=== PATIENT | female | born 1965 | race Caucasian/White ===

== ENCOUNTER 2023-01-11 09:35 | Outpatient (CLI) | payer BC, SELFPAY | END 2023-01-11 09:36 | disposition home or self-care (01) | PROVIDERS: PCP Physician Assistant Medical; Visit Provider Physician Assistant Medical | DX: Z00.00 Encounter for general adult medical examination without abnormal findings (principal); I10 Essential (primary) hypertension; E78.5 Hyperlipidemia, unspecified; R73.01 Impaired fasting glucose | CPT/HCPCS: 80053; 80061; 84443 ==

== ENCOUNTER 2024-01-01 10:15 | Outpatient (RCR) | payer BC, SELFPAY | END 2024-03-04 15:24 | disposition home or self-care (01) | PROVIDERS: PCP Physician Assistant Medical; Visit Provider Orthopaedic Surgery | DX: M22.2X9 Patellofemoral disorders, unspecified knee (principal); Z51.89 Encounter for other specified aftercare | CPT/HCPCS: 97110; 97140; 97161 ==

== ENCOUNTER 2024-05-28 09:09 | Outpatient (CLI) | payer BC, SELFPAY | END 2024-05-28 09:10 | disposition home or self-care (01) | PROVIDERS: PCP Physician Assistant Medical; Visit Provider Physician Assistant Medical | DX: Z00.00 Encounter for general adult medical examination without abnormal findings (principal); E78.5 Hyperlipidemia, unspecified; I10 Essential (primary) hypertension; R73.01 Impaired fasting glucose; R06.00 Dyspnea, unspecified; R35.0 Frequency of micturition; Z13.0 Encounter for screening for diseases of the blood and blood-forming organs and certain disorders involving the immune mechanism; Z13.6 Encounter for screening for cardiovascular disorders; Z13.1 Encounter for screening for diabetes mellitus | CPT/HCPCS: 80053; 80061; 84443; 87086 ==

== ENCOUNTER 2024-06-10 12:48 | Outpatient (CLI) | payer BC, SELFPAY ==
[2024-06-10 13:48] VITALS: BP 162/88; PULSE 98; RESP 18
--- NOTE | 2024-06-10 14:15 | PM.ST ---
Stress Test Note Date Date of test: 06/10/24 Providers Primary care provider: Nori Decker Stress test physician: Will Aparicio Stress Test Note Stress test ordered: Stress Echo Indication for test: Dyspnea Results discussion: Patient is a very nice 59-year-old female presents for the above test after discussion the risks benefits and side effects she would like to proceed pretest EKG shows normal sinus rhythm, with a ventricular rate of 69 and a BP of 152/84. No acute ST wave changes are noted, there is some at T-wave flattening notable in leads 3. Standard [place] protocol is employed over a 10 minute period,test is terminated because of fulfillment of protocol, she achieved a metabolic equivalent of 11.7 Mets with a maximum heart rate of 163, during this test she had no acute symptoms, on review of the tracing there is no acute changes suggestive of ischemia, occasional PACs are noted. Impression: Negative objective, and subjective portion of stress echo Follow up suggested: Await echo images clinical correlation with these will be needed, conditioning was felt to be excellent, patient left this testing facility in good condition. No complications
== END 2024-06-10 13:49 | disposition home or self-care (01) ==
PROVIDERS: PCP Physician Assistant Medical; Visit Provider Physician Assistant Medical
DX: R07.89 Other chest pain (principal); R06.00 Dyspnea, unspecified
CPT/HCPCS: 93016; 93325; 93351

== ENCOUNTER 2024-08-05 16:46 | Outpatient (CLI) | payer BC, SELFPAY ==
--- NOTE | 2024-08-05 17:00 | CRLHL7_ITS ---
For Patients: As a result of the Century Cures Act, medical imaging exams and procedure reports are released immediately into your electronic medical record. You may view this report before your referring provider. If you have questions, please contact your health care provider. BILATERAL DIGITAL SCREENING MAMMOGRAM WITH COMPUTER-AIDED DETECTION AND TOMOSYNTHESIS CLINICAL HISTORY: Routine screening exam. COMPARISON: None. TECHNIQUE: Digital mammogram in CC and MLO projections including computer-aided detection (CAD). Tomosynthesis was used in this interpretation. BREAST COMPOSITION: There are scattered areas of fibroglandular density. FINDINGS: RIGHT Breast: No suspicious findings. LEFT Breast: Focal asymmetric density within the upper outer quadrant 7 cm from the nipple. IMPRESSION: LEFT breast asymmetry/mass. RECOMMENDATIONS: Additional mammographic views of the LEFT breast including 3D spot compression MLO and 3D XCCL. LEFT breast ultrasound may also be required. BI-RADS Category 0: Incomplete: Need Additional Imaging Evaluation [facility] will contact the patient for follow-up. A lay language report of this examination will be provided to the patient. Dictated by Aroldo Yoon MD @ 08/06/2024 9:14:23 AM jj/Dictated by: Aroldo Yoon MD @ 08/06/2024 9:14:00 AM (Electronically Signed)
== END 2024-08-05 16:47 | disposition home or self-care (01) ==
LOC: MAMMO 16:47
PROVIDERS: PCP Physician Assistant Medical; Visit Provider Physician Assistant Medical
DX: Z12.31 Encounter for screening mammogram for malignant neoplasm of breast (principal); N63.20 Unspecified lump in the left breast, unspecified quadrant
CPT/HCPCS: 77063; 77067

== ENCOUNTER 2024-08-13 10:27 | Outpatient (CLI) | payer BC, SELFPAY ==
--- NOTE | 2024-08-13 10:45 | CRLHL7_ITS ---
For Patients: As a result of the Century Cures Act, medical imaging exams and procedure reports are released immediately into your electronic medical record. You may view this report before your referring provider. If you have questions, please contact your health care provider. DIGITAL DIAGNOSTIC LEFT MAMMOGRAM PERFORMED USING TOMOSYNTHESIS AND COMPUTER-AIDED DETECTION LEFT BREAST ULTRASOUND INDICATION: 59-year-old female. Follow-up a density identified on a recent baseline mammogram 08/05/2024 within the upper outer quadrant of the LEFT breast. TECHNIQUE: Spot compression view of the LEFT breast in the MLO projection. An exaggerated CC view of the LEFT breast was performed laterally. Tomosynthesis and CAD were utilized. COMPARISON: 08/05/2024. FINDINGS: There are areas of scattered fibroglandular density in the LEFT breast. Within the upper outer quadrant between 5 and 7 cm from the nipple is a dense irregular nearly 1 cm nodule. Ultrasound is recommended for further evaluation and will be performed subsequently. Please see ultrasound report from same date. IMPRESSION: Persistent nodule upper outer quadrant LEFT breast for which LEFT breast ultrasound is recommended. ULTRASOUND: Directed LEFT breast ultrasound performed with this radiologist present. In the upper outer quadrant at the 2 o`clock position approximately 5 cm from the nipple is an ill-defined hypoechoic shadowing lesion measuring 8 x 6 x 10 mm. This may reflect a primary breast carcinoma. Ultrasound-guided biopsy with clip placement was discussed in detail with the patient. The patient will make a decision regarding next steps after talking with her primary care provider and possibly after a surgical consultation. IMPRESSION: Solid shadowing lesion upper outer LEFT breast 2 o`clock position 5 cm from the nipple for which biopsy is recommended. BI-RADS Category 4: Suspicious A lay language report of this examination will be provided to the patient. Dictated by: Modesto Hanks MD @08/13/2024 11:52:46 AM neeraj/Dictated by: Modesto Hanks MD @ 08/13/2024 11:52:00 AM (Electronically Signed)
--- NOTE | 2024-08-13 11:15 | CRLHL7_ITS ---
For Patients: As a result of the Century Cures Act, medical imaging exams and procedure reports are released immediately into your electronic medical record. You may view this report before your referring provider. If you have questions, please contact your health care provider. PLEASE SEE DIGITAL DIAGNOSTIC LEFT MAMMOGRAM PERFORMED SAME DAY CRL:shade laguerre/Dictated by: Modesto Hanks MD @ 08/13/2024 11:54:00 AM (Electronically Signed)
== END 2024-08-13 10:28 | disposition home or self-care (01) ==
LOC: MAMMO 10:28
PROVIDERS: PCP Physician Assistant Medical; Visit Provider Physician Assistant Medical
DX: N63.21 Unspecified lump in the left breast, upper outer quadrant (principal); R92.8 Other abnormal and inconclusive findings on diagnostic imaging of breast
CPT/HCPCS: 76642; 77065; G0279

== ENCOUNTER 2024-08-21 08:03 | Outpatient (CLI) | payer BC, SELFPAY ==
--- NOTE | 2024-08-21 08:15 | CRLHL7_ITS ---
For Patients: As a result of the Century Cures Act, medical imaging exams and procedure reports are released immediately into your electronic medical record. You may view this report before your referring provider. If you have questions, please contact your health care provider. ULTRASOUND-GUIDED BREAST BIOPSY AND POST-BIOPSY DIGITAL MAMMOGRAM FOR BIOPSY MARKER PLACEMENT CLINICAL HISTORY: Indeterminate solid mass. COMPARISON STUDIES: 08/13/2024. TECHNIQUE: Real-time ultrasound with image documentation was used for targeting the breast lesion. Core biopsy specimens were obtained using an automated gun with an 18-gauge biopsy needle. Post-biopsy CC and ML digital mammograms were obtained to document position of the biopsy marker. CONSENT and TIME OUT: The procedure, risks, and alternatives were explained to the patient and a consent was signed. [place] Protocol was followed including pre-procedure verification that relevant information/documentation was available, reviewed and properly matched to the patient; consent accurate and complete; and equipment and supplies available. Time Out was conducted just prior to starting procedure to verify the four required elements: patient identity, correct side/site marked (if applicable), procedure, relevant images/results properly labeled and displayed (if applicable). PROCEDURE: The patient was positioned supine on the ultrasound table. The breast was prepped with ChloraPrep. 8 cc of 1 percent lidocaine used for local anesthesia. Core samples were obtained. A sterile metal biopsy clip was placed percutaneously to krista the lesion position within the breast. The specimens were placed in 10% formalin and sent to the pathology department. Pressure was held on the biopsy site until all bleeding subsided. The skin incision was closed with Steri-Strips. An ice pack was positioned over the biopsy site. Post-biopsy instructions were reviewed with the patient, and a written copy was given to her. LATERALITY: LEFT breast. LESION: Solid irregular hypoechoic nodule measuring 9 x 6 x 10 millimeters at 2 o`clock 5 cm from the nipple. SUSPICION FOR MALIGNANCY: High. NUMBER OF SAMPLES: 5. BIOPSY CLIP SHAPE: Oval. PROXIMITY OF CLIP TO TARGET: Within the lesion. IMPRESSION: Ultrasound-guided breast biopsy. When the pathology report is available, an addendum to this report will be made. ACR not applicable Dictated by Aroldo Yoon MD @ 08/21/2024 11:56:35 AM jj/Dictated by: Aroldo Yoon MD @ 08/21/2024 11:56:00 AM (Electronically Signed)
--- NOTE | 2024-08-21 09:00 | CRLHL7_ITS ---
For Patients: As a result of the Century Cures Act, medical imaging exams and procedure reports are released immediately into your electronic medical record. You may view this report before your referring provider. If you have questions, please contact your health care provider. PLEASE SEE ULTRASOUND-GUIDED LEFT BREAST BIOPSY PERFORMED SAME DAY CRL:shade laguerre/Dictated by: Aroldo Yoon MD @ 08/21/2024 11:56:00 AM (Electronically Signed)
== END 2024-08-21 08:04 | disposition home or self-care (01) ==
LOC: US 08:03
PROVIDERS: PCP Physician Assistant Medical; Visit Provider Physician Assistant Medical
DX: N63.20 Unspecified lump in the left breast, unspecified quadrant (principal); C50.912 Malignant neoplasm of unspecified site of left female breast; R92.8 Other abnormal and inconclusive findings on diagnostic imaging of breast
CPT/HCPCS: 19083; 77065; 88305; 88360; 88361; A4648; A4649

== ENCOUNTER 2024-09-01 14:04 | Outpatient (CLI) | payer BC, SELFPAY ==
[2024-09-03 17:08] LABS: HPV Source Cervix; HPV, High Risk by TMA Not Detected
== END 2024-09-01 14:05 | disposition home or self-care (01) ==
PROVIDERS: PCP Physician Assistant Medical; Visit Provider Physician Assistant Medical
DX: Z01.818 Encounter for other preprocedural examination (principal)
CPT/HCPCS: 87624; 87625; 88141; 88142

== ENCOUNTER 2024-09-23 09:09 | Day surgery (SDC) | payer BC, SELFPAY ==
--- NOTE | 2024-09-23 09:15 | CRLHL7_ITS ---
For Patients: As a result of the Cures Act, medical imaging exams and procedure reports are released immediately into your electronic medical record. You may view this report before your referring provider. If you have questions, please contact your health care provider. BREAST WIRE LOCALIZATION USING ULTRASOUND GUIDANCE CLINICAL HISTORY: Breast cancer, lumpectomy. LATERALITY: LEFT breast. LESION: Hypoechoic solid lesion measuring 9 x 6 x 10 millimeters 2 o`clock 5 cm from the nipple. LOCALIZATION WIRE: [place] hookwire. TECHNIQUE: The localization wire was placed using real-time ultrasound guidance with image documentation. Cranial-caudal and medial-lateral digital mammograms were obtained after localization wire placement. CONSENT and TIME OUT: The procedure, risks, and alternatives were explained to the patient and a consent was signed. [place] Protocol was followed including pre-procedure verification that relevant information/documentation was available, reviewed and properly matched to the patient; consent accurate and complete; and equipment and supplies available. Time Out was conducted just prior to starting procedure to verify the four required elements: patient identity, correct side/site marked (if applicable), procedure, relevant images/results properly labeled and displayed (if applicable). PROCEDURE: The skin was prepped with ChloraPrep and 6 cc of 1% lidocaine was injected for local anesthesia. The localization wire was placed within or near the targeted breast lesion using ultrasound guidance. The patient tolerated the procedure well. PROXIMITY OF WIRE TO LESION: The wire is located within the lesion adjacent to the clip. IMPRESSION: Successful breast wire localization. ACR not applicable Dictated by Aroldo Yoon MD @ 09/23/2024 10:54:17 AM jj/Dictated by: Aroldo Yoon MD @ 09/23/2024 10:54:00 AM (Electronically Signed)
[2024-09-23 09:35] VITALS: BMI 23.6
--- NOTE | 2024-09-23 09:35 | SUR.PREOP ---
Patient to radiology at 0988.
--- NOTE | 2024-09-23 10:00 | CRLHL7_ITS ---
For Patients: As a result of the Century Cures Act, medical imaging exams and procedure reports are released immediately into your electronic medical record. You may view this report before your referring provider. If you have questions, please contact your health care provider. SEE ULTRASOUND-GUIDED LEFT BREAST WIRE LOCALIZATION PERFORMED SAME DAY CRL:shade laguerre/Dictated by: Aroldo Yoon MD @ 09/23/2024 10:54:00 AM (Electronically Signed)
[2024-09-23 10:28] VITALS: BP 125/84; PULSE 72; RESP 16; TEMP 36.6; O2SAT 97
[2024-09-23] MEDS: SODIUM CHLORIDE 0.9 % (FLUSH) 10 ML SYRINGE IVF (10:30)
[2024-09-23] MEDS: 0.9 % SODIUM CHLORIDE 500 ML 500 ML 100 ML IV ×2 (10:30→14:43)
--- NOTE | 2024-09-23 10:53 | W.PM.H&PU ---
History & Physical Update History & Physical Update H&P Reviewed and patient assessed: No changes noted
[2024-09-23] MEDS: CEFAZOLIN 2 GM INJ IVP (12:38)
[2024-09-23] MEDS: ISOSULFAN BLUE 5 ML VIAL INJECTION (12:45)
[2024-09-23] MEDS: BUPIVACAINE 0.25% 30 ML INJECTION (12:47)
[2024-09-23] MEDS: LIDOCAINE 1% MDV 20 ML INJECTION (12:47)
--- NOTE | 2024-09-23 12:56 | W.ANESCHARGE ---
Anesthesia Charges Start Date/Time Anesthesia Start Date: 09/23/24 Anesthesia Start Time: 12:28 Stop Date/Time Anesthesia Stop Date: 09/23/24 Anesthesia Stop Time: 14:15
--- NOTE | 2024-09-23 13:19 | CRLHL7_ITS ---
For Patients: As a result of the Cures Act, medical imaging exams and procedure reports are released immediately into your electronic medical record. You may view this report before your referring provider. If you have questions, please contact your health care provider. LEFT BREAST SPECIMEN CLINICAL HISTORY: Lumpectomy, breast cancer. COMPARISON: 08/13/2024. FINDINGS: Two views of the LEFT breast specimen submitted. Specimen contains the biopsied mass, the biopsy clip and the localization wire. IMPRESSION: The specimen contains the biopsied mass, the biopsy clip and the localization wire. ACR not applicable. Dictated by Aroldo Yoon MD @ 09/24/2024 10:12:39 AM/CRL:karmen CHERY/Dictated by: Aroldo Yoon MD @ 09/24/2024 10:12:00 AM (Electronically Signed)
--- NOTE | 2024-09-23 14:06 | P.GSOP_ITS ---
Operative Note Date of procedure: 09/23/24 Pre-op diagnosis: Invasive ductal carcinoma, left breast Post-op diagnosis: Same Type of Procedure: 1. Left breast lumpectomy 2. 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 Please see consultation note for full discussion regarding treatment recommendations based off of NCCN guidelines. Risks and benefits of operative intervention were discussed at length with the patient. Risks included but was not limited to: Bleeding, infection, risk of damage to surrounding structures, possible need for additional procedures, risk of lymphedema, nerve injury and postoperative complications such as pneumonia, pulmonary emboli or ID. All questions and concerns were addressed with the patient agreeing to proceed. Procedure Description: Prior to arrival in the operating room, the patient was had injection of the radial colloid. She was then taken to radiology where a wire was placed to localize the previously placed clip. The patient was then brought to the operating room where anesthesia was induced. I injected 3 ml of lymphazurin blue and performed breast massage for a period of 5 minutes. The left breast and axilla were prepped and draped in the usual sterile fashion. Timeout was confirmed. Local anesthesia was infiltrated into a transverse incision in the upper outer breast at the location of the tip of the wire. Using electrocautery, the segment of breast tissue containing the tip of the wire was excised. This was sent for evaluation. Radiology confirmed that the clip and wire were present within the specimen. Pathology then called back and confirmed that the margins were appropriate. We then elected to perform the sentinel node aspect of the procedure. Going through the same skin incision and Using the neoprobe, the area of maximal counts was identified. Dissection was carried down to the axillary tissue using electrocautery. Using a combination of blunt dissection and electrocautery, a hot and blue node was resected. Care was taken to clip the lymphatics when identified. No additional nodes were seen. The node was sent to pathology for permanent evaluation. The wound waS irrigated and all irrigant suctioned from the wound. Additional local anesthesia was infiltrated. The wounds were then closed in layers using absorbable suture, and Steri-Strips were placed over the wound. The patient was awakened without incident and taken to PACU in stable condition. Sponge, needle and instrument counts were correct x3 at the termination of the case. Findings: Wire localized left breast mass. Single axillary left sentinel node identified Anesthesia: MAC and local Surgeon: Mary Gastelum MD Estimated blood loss (mL): 10 Additional Specimen Information: 1. Left breast mass 2. Left axillary node Condition: stable Disposition: PACU [place] Node Biopsy for Breast Cancer Operation Performed with Curative Intent: Yes Tracers used to Identify sentinel nodes in the upfront surgery (non-neoadjuvant) setting: Dye and Radioactive Tracer Tracers used to identify sentinel nodes in the neoadjuvant setting: N/A All nodes (colored or non-colored) present at the end of a dye filled lymphatic channel were removed: Yes All significantly radioactive nodes were removed: Yes All palpably suspicious nodes were removed: Yes Biopsy proven positive nodes marked with clips prior to chemotherapy were identified and removed: Not Applicable
[2024-09-23 14:12] VITALS: BP 116/83; PULSE 68; RESP 16; TEMP 36.1; O2SAT 98
[2024-09-23 14:15] VITALS: BP 132/85; PULSE 66; RESP 16; O2SAT 98
--- NOTE | 2024-09-23 14:15 | W.ANESCHARGE ---
Anesthesia Charges Start Date/Time Anesthesia Start Date: 09/23/24 Anesthesia Start Time: 12:28 Stop Date/Time Anesthesia Stop Date: 09/23/24 Anesthesia Stop Time: 14:15
[2024-09-23 14:30] VITALS: BP 133/85; PULSE 66; RESP 16; O2SAT 98
[2024-09-23] MEDS: ACETAMINOPHEN 325 MG TABLET 650 MG PO (14:30)
[2024-09-23] MEDS: KETOROLAC 15 MG/ML inj IVP (14:30)
[2024-09-23 14:45] VITALS: BP 130/80; PULSE 68; RESP 16; O2SAT 99
== END 2024-09-23 15:08 | disposition home or self-care (01) ==
PROVIDERS: PCP Physician Assistant Medical; Visit Provider Surgery
PROC: (CPT 19125; principal; 2024-09-23 11:30)
PROC: (CPT 19125; 2024-09-23 11:30)
PROC: (CPT 19125; 2024-09-23 11:30)
DX: C50.412 Malignant neoplasm of upper-outer quadrant of left female breast (principal); Z17.0 Estrogen receptor positive status [ER+]; Z17.21 Progesterone receptor positive status
CPT/HCPCS: 19125; 38500; 00400; 01610; 19285; 77065; 88307; 88341; 88342; J2003; A9270; C1769; J0665; J0690; J1885; J2250; J2405; J2704; J3010; J3490; J7030

== ENCOUNTER 2024-11-13 13:53 | Outpatient (CLI) | payer BC, SELFPAY | END 2024-11-13 13:54 | disposition home or self-care (01) | LOC: RAD 13:54 | PROVIDERS: PCP Physician Assistant Medical; Visit Provider Internal Medicine Hematology & Oncology | DX: Z78.0 Asymptomatic menopausal state (principal); M85.88 Other specified disorders of bone density and structure, other site | CPT/HCPCS: 77080 ==

== ENCOUNTER 2025-01-29 14:50 | Outpatient (RCR) | payer BC, SELFPAY ==
--- NOTE | 2024-10-23 14:27 | ONC.NURNOTE ---
I met with patient and her significant other after the consult. Patient informed of plan of care. 1. Referral to [facility] placed and supporting documents faxed. They will call patient to schedule. 2. Patient to schedule her DEXA scan sometime the next few weeks. We will call her with results. 3. Dental clearance form given to patient. 4. Patient education given re: Zometa and Anastrozole (she understands that we will not start this until radiation is completed)
--- NOTE | 2024-11-20 13:59 | ONC.NURNOTE ---
Addendum entered by Kimmie Schneider 12/29/24 10:42: Patient has been in communication with [facility] [place] via email. Because the patient has so many questions, Dr. Fox recommended an appointment. I offered patient an appointment to answer her questions surrounding endocrine therapy and Zometa infusions. She is very busy with work but will plan to schedule a visit the first part of January. Until then, she will wait to start taking the endocrine therapy. See patients questions below: 1. What is the purpose of Anastrozole in my treatment plan if it shows such a low benefit percentage of keeping cancer from recurring?? - was the percentage of recurrence if I take the medication only 3% after 9 years?? ? - what is the percentage rate of cancer recurrence if I take no medication after 9 years? ?2. You mentioned taking it for 5-10 years.? What determines when to stop?? Does that mean I will not be cancer free until I stop taking it??? 3.? What data exists for cancer survivors on this medication? For example, how many cancer survivors on this medication have remained cancer free for 10 years versus those not on the medication? 4. If I-take this, how often do I complete a bone density check? In addition, how often do I complete a panel check on my heart, kidney and liver function? ? ?- Does longer term use impact bones, kidney and liver function, more severely than short term use?5. Are the?side effects that we discussed occurring in every patient that takes this medication?? Do they subside or continue to full period of the medication (fatigue/hot flashes)?? 6. With the serious side effects relating to the heart, liver, kidneys, when should I be concerned and contact you or seek medical attention? ?7. How will my response to the medication be monitored?- how often would I conduct regular check-ups or tests?? 8. Are there lifestyle changes I should consider while taking this?? - Should I follow a specific diet or exercise regimen?? 11. What are the potential long-term effects of taking this? - Will this lead to premature aging / reduction in activities- 12. Based on my type of cancer and the stage,?would you recommend this prescribed treatment plan to one of your own family members?? Original Note: DEXA scan reviewed with Dr. Fox. Patient informed of results and plan to proceed with Anastrozole after the completion of radiation. Rx sent to patients pharmacy. Patient states she has several questions about the endocrine therapy that she would like to email to myself for Dr. Fox's review. I assured patient that once I receive them I will review them with the provider. At this time, we will wait to schedule 3 month follow up until her questions are answered and she is agreeable to the treatment plan.
--- NOTE | 2025-04-06 15:17 | ONC.NURNOTE ---
BCN received an email from patient with an update on her condition since starting the Anastrozole: I'm still taking the meds and have been since March 09.? I've had a few side effects and some make me feel like I'm just not myself (crabby, down, achy, hot at night).? ? I do want to continue until my next appt on April 30 and then can discuss options. Thanks! Rohit
== END 2025-04-21 23:59 | disposition home or self-care (01) ==
LOC: CCIC 14:50
PROVIDERS: PCP Physician Assistant Medical; Visit Provider Physician Assistant
DX: C50.912 Malignant neoplasm of unspecified site of left female breast (principal); Z17.0 Estrogen receptor positive status [ER+]
CPT/HCPCS: 99202; 99204; 99214; G0463

== ENCOUNTER 2025-02-06 09:20 | Outpatient (CLI) | payer BC, SELFPAY | END 2025-02-06 09:21 | disposition home or self-care (01) | LOC: NFLDREF 02-07 08:10 | PROVIDERS: PCP Physician Assistant Medical; Referring Provider Physician Assistant Medical; Visit Provider Internal Medicine Hematology & Oncology | DX: C50.412 Malignant neoplasm of upper-outer quadrant of left female breast (principal); E78.5 Hyperlipidemia, unspecified | CPT/HCPCS: 80053; 80061 ==

== ENCOUNTER 2025-05-19 08:29 | Outpatient (CLI) | payer BC, SELFPAY ==
--- NOTE | 2025-05-19 08:45 | CRLHL7_ITS ---
For Patients: As a result of the Cures Act, medical imaging exams and procedure reports are released immediately into your electronic medical record. You may view this report before your referring provider. If you have questions, please contact your health care provider. BILATERAL DIAGNOSTIC MAMMOGRAM WITH COMPUTER-AIDED DETECTION AND TOMOSYNTHESIS LEFT BREAST ULTRASOUND CLINICAL HISTORY: LEFT breast lump. COMPARISON: 09/23/2024, 08/13/2024, 08/05/2024. TECHNIQUE: Digital BILATERAL mammogram in four projections with computer-aided detection. Tomosynthesis was used in this interpretation. Left XCCL 3D mammogram also submitted. Real-time ultrasound imaging of LEFT breast with imaging documentation. Scanning was performed by both the technologist and the radiologist. BREAST COMPOSITION: There are scattered areas of fibroglandular density. FINDINGS: Bilateral mammogram images show posttreatment changes LEFT breast including lumpectomy and radiation change. No suspicious mass or architectural distortion within either breast. No adenopathy or suspicious calcifications. Targeted LEFT breast ultrasound performed in the area of concern at 2 o`clock, 9 cm from the nipple. This area corresponds to normal scar tissue including a small amount of fluid within the subcutaneous tissues. No solid mass. No suspicious findings. IMPRESSION: No evidence of recurrent malignancy. RECOMMENDATIONS: Routine screening mammography. Clinical follow-up. A lay language report of this examination will be provided to the patient. BI-RADS Category 2: Benign. Dictated by Aroldo Yoon MD @ 05/19/2025 10:34:45 AM /sp SP/Dictated by: Aroldo Yoon MD @ 05/19/2025 10:34:00 AM (Electronically Signed)
--- NOTE | 2025-05-19 09:15 | CRLHL7_ITS ---
For Patients: As a result of the Century Cures Act, medical imaging exams and procedure reports are released immediately into your electronic medical record. You may view this report before your referring provider. If you have questions, please contact your health care provider. PLEASE SEE BILATERAL BREAST DIAGNOSTIC MAMMOGRAM OF SAME DAY. CRL:sp SP/Dictated by: Aroldo Yoon MD @ 05/19/2025 10:41:00 AM (Electronically Signed)
== END 2025-05-19 08:30 | disposition home or self-care (01) ==
LOC: MAMMO 08:30
PROVIDERS: PCP Physician Assistant Medical; Visit Provider Physician Assistant
DX: N63.20 Unspecified lump in the left breast, unspecified quadrant (principal); C50.912 Malignant neoplasm of unspecified site of left female breast
CPT/HCPCS: 76642; 77066; G0279

== ENCOUNTER 2025-06-25 12:15 | Outpatient (CLI) | payer BC, SELFPAY | END 2025-06-25 12:16 | disposition home or self-care (01) | PROVIDERS: PCP Physician Assistant Medical; Visit Provider Physician Assistant Medical | DX: Z00.00 Encounter for general adult medical examination without abnormal findings (principal); Z78.0 Asymptomatic menopausal state | CPT/HCPCS: 80053; 80061; 82306; 84443; 87086 ==